=== PATIENT | male | born 1955 | race Caucasian/White ===

== ENCOUNTER 2016-08-23 12:30 | Inpatient (IN) | payer SELFPAY ==
[~2016-08-23] VITALS: Ht 175.3 cm
--- NOTE | ~2016-08-23 | CON ---
PATIENT'S NAME: RUCHI BR[facility] AGE: 60 Y [address] ROOM: [place] [address] [place] [facility] [place] DATE: 08/23/2016 Consultation DISCHARGE DATE: FAMILY PHYSICIAN: Antoine Sesay MD ATTENDING PHYSICIAN: SHANIA GIMENEZ DATE OF CONSULTATION: 08/31/2016 REFERRING PHYSICIAN: FANI ESCOBAR MD LOCATION: Medical-Surgical Unit room 3216. REFERRING PROVIDER: Rianna Meier MD. CHIEF COMPLAINT: Palliative Care referral for goals of care conversation. HISTORY OF PRESENT ILLNESS: The patient is a 60-year-old male who was recently admitted to [facility] and diagnosed with hepatitis C cirrhosis and hepatocellular carcinoma. He does have a past medical history significant for heavy alcohol and tobacco use. While at the [facility], he did undergo a paracentesis. After discharged home, he noticed increasing abdominal distention and had increasing shortness of breath secondary to this. Thus, he presented to the ER in [place] and was transferred to [facility] for higher level of care. The patient at that time had also been noted to have some black stools over the last couple of days. PREVIOUS OPERATIONS: 1. Appendectomy. 2. Previous paracentesis. PAST MEDICAL HISTORY: 1. Hepatocellular carcinoma. 2. Hepatitis C. 3. Liver cirrhosis. 4. History of tobacco and alcohol use. 5. Ascites, status post paracentesis. MEDICATIONS: Please see current MAR. ALLERGIES: NO KNOWN ALLERGIES. PATIENT'S NAME: RUCHI BROOKE [facility] AGE: 60 Y [address] ROOM: [place] [address] [place] [facility] [place] DATE: 08/23/2016 Consultation DISCHARGE DATE: FAMILY PHYSICIAN: Antoine Sesay MD ATTENDING PHYSICIAN: SHANIA GIMENEZ SOCIAL HISTORY: The patient has a history of drinking 3-4 beers as well as hard liquor daily for the past 15-20 years, he quit approximately 6 weeks ago. He also has a history of smoking a pack a day for the last 20 years. He also quit approximately 6 weeks ago. The patient is not . He lives alone in [place]. His mother does live with him from time to time. FAMILY HISTORY: The patient's sister of breast cancer 5 years ago, his mother has heart disease, and his father of natural causes. REVIEW OF SYSTEMS: GENERAL: Appetite has been down. Positive for a weight loss. Denies any recent fever, chills, or night sweats. HEENT: No change in vision or hearing. No headaches. No sinus congestion. No changes in hearing. RESPIRATORY: No cough. Reports that his shortness of breath has improved since admission. Denies any shortness of breath at the current time. CARDIOVASCULAR: No chest pain, pressure, or palpitations. Denies orthopnea. No peripheral edema. GASTROINTESTINAL: Has had some intermittent nausea and vomiting, denies any at the current time. Does have issues with some diarrhea, but has been taking lactulose. Denies any black stools during hospitalization. No difficulties with chewing or swallowing. GENITOURINARY: Denies dysuria, urinary frequency or urgency. MUSCULOSKELETAL: Denies any joint swelling or joint pain. No back pain. NEUROLOGIC: No numbness or tingling. Denies dizziness. INTEGUMENTARY: No rashes or open areas. PSYCHIATRIC: Denies feeling overtly depressed or anxious. Denies insomnia. PHYSICAL EXAMINATION: VITAL SIGNS: Blood pressure 105/75, heart rate 102, temperature 98.1, respirations 16, and O2 saturations 96% on room air. GENERAL: Reveals an alert and oriented, chronically ill-appearing, thin, elderly male who is lying in the hospital bed, does not appear to be in any acute distress. HEENT: Normocephalic, atraumatic. Does have temporal wasting. Pupils are equal and reactive to light. Sclerae are slightly icteric. Tongue and mucous membranes are moist and pink. Dentition is poor. CARDIOVASCULAR: Heart tones, regular rate and rhythm. He is tachycardic. I am not able to note a murmur. RESPIRATORY: Respirations are regular and nonlabored. Lung sounds are clear to auscultation bilaterally. GASTROINTESTINAL: Abdomen is rounded and nontender. Bowel sounds are PATIENT'S NAME: ANDRIY HOPPER [facility] AGE: 60 Y [address] ROOM: [place] [address] [place]: [facility] [place] DATE: 08/23/2016 Consultation DISCHARGE DATE: FAMILY PHYSICIAN: Antoine Sesay MD ATTENDING PHYSICIAN: SHANIA GIMENEZ present. MUSCULOSKELETAL: No significant joint deformities. Peripheral pulses are strong and equal bilaterally. No clubbing, cyanosis, or edema. SKIN: Warm and dry. NEUROLOGICAL: Grossly intact. PSYCHIATRIC: Displays appropriate mood and affect given the situation. IMPRESSION AND PLAN: 1. Poor appetite. 2. Fatigue. 3. Weakness. 4. Code status: This was discussed with the patient, and he tells me that he does not want CPR or mechanical ventilation that would prolong his life. He does not have an advance directive or living will, but does tell me that his nuaxyme-ds-wio, Vishal, would be is healthcare power of state's attorney should we need anything. The patient also tells me that he is trying to work on power of state's attorney and his will. I did offer to assist him in completing healthcare power of state's attorney paperwork, but he declines at this time. I met with the patient, introduced the role of palliative Care for goals of care conversation as well as symptom management. I did undergo a long discussion with the patient on his goals. He tells me at this point he just wants to go home and have 1 more month to get his affairs in order. He states he is ready to when that time comes and that he wants to in his own home. Discussed with him he does not fully know his prognosis or how much time he has, but he tells me over and over again that all he wants is 1 more month. Discussed how we can make these goals happen. The patient states that his mother can move in with him and take care of him. I also discussed the role of hospice versus home health care at the home to assist with meeting these needs as well. I did also place a phone call to the patient's mother and confirmed this discussion with her. She states the patient had called her earlier today and told her that he just wanted to come home and be made comfortable and she is in agreement with this plan and tells me that she does feel as though she will be able to help take care of him. They do also have multiple friends in the area that would also be able to assist with his cares. I then placed a phone call to the patient's brother-in- law, Vishal, he is agreeable to being Andriy's power of state's attorney and he also agrees with the plan of going home plus or minus hospice or home health and states he will assist with this making this plan happen. I did update Shirlene Abernathy APRN as well as SU Butler, with the results of my conversation with the patient. As the patient does seem to have changed his mind multiple times over the course of the day, we will follow up in the next coming days to reassess goals of care. The patient denies any spiritual needs, denies any worries or concerns at this time. PATIENT'S NAME: ANDRIY HOPPER [facility] AGE: 60 Y [address] ROOM: [place] [address] [place]: [facility] [place] DATE: 08/23/2016 Consultation DISCHARGE DATE: FAMILY PHYSICIAN: Antoine Sesay MD ATTENDING PHYSICIAN: SHANIA GIMENEZ Total visit was 65 minutes, greater than 50% of this time was spent providing education to the patient, coordinating care with the patient's family and staff. Thank you for allowing me to assist this patient and family. OSBALDO LEPE NP FOR KAMINI TIPTON MD DLS/modl /[id number] CC: Rianna Meier MD d: 09/02/[id number] t: 09/09/16 0821, CONSULTATION REPORT
--- NOTE | ~2016-08-23 | CON ---
PATIENT'S NAME: RUCHI [facility] AGE: 60 Y [address] ROOM: [place] [id number] [place] [facility] [place]: 08/23/2016 Consultation DISCHARGE DATE: FAMILY PHYSICIAN: PHYSICIAN, UNKNOWN ATTENDING PHYSICIAN: SHANIA GIMENEZ REFERRING PHYSICIAN: FANI ESCOBAR MD IDENTIFICATION: This is a 60-year-old male. REASON FOR CONSULTATION: Mr. Stark was admitted with abdominal pain, abdominal distention, liver cirrhosis, and history of HCC. HISTORY OF PRESENT ILLNESS: He lives in [place] and was admitted with abdominal pain, distention, and ascites. He is known to have liver cirrhosis with last 1 month that he knows of when his abdomen started getting distended and he was worked up in [place]. He was told that he has liver cirrhosis with HCC and that he was not a candidate for liver transplant. He has been a heavy drinker for the last 30 years, approximately 3 cans of beer and hard liquor every day, which he quit drinking for the last 1 month. He has been a heavy smoker, 1 pack per day for the last 30 years. He also quit smoking 1 month ago. He is unmarried. His mother lives with him sometime. PAST SURGICAL HISTORY: He had appendectomy at age 10. MEDICAL HISTORY: Liver cirrhosis with HCC, abdominal pain as a result. ALLERGIES: NO KNOWN DRUG ALLERGIES. MEDICATIONS: He is takin. Lasix. 2. Spironolactone. REVIEW OF SYSTEMS: A 10-point review of system was negative other than mentioned above. PHYSICAL EXAMINATION: GENERAL: Reveals a middle aged man, who is not in acute discomfort; however, he has distended abdomen, and he also gives me a history of having dark- colored stools, and his Hemoccult blood was positive in [place]. PATIENT'S NAME: RUCHI [facility] AGE: 60 Y [address] ROOM: [place] [address] [place] [facility]: 08/23/2016 Consultation DISCHARGE DATE: FAMILY PHYSICIAN: PHYSICIAN, UNKNOWN ATTENDING PHYSICIAN: SHANIA GIMENEZ VITAL SIGNS: His blood pressure is 142/88, pulse is 83 per minute, weight is 62.2 kg, and temperature is 97.7 degrees Fahrenheit. EYES: Mildly icteric. It is difficult to evaluate in room light. HEAD: Normocephalic, atraumatic. NECK: Supple. No lymphadenopathy. Neck veins are not engorged. CHEST: Clear to palpation, percussion, and auscultation. ABDOMEN: Markedly distended and has ascites. Liver and spleen cannot be percussed because of ascites. He has marked wasting with intercostal muscle loss and supraclavicular muscle loss, also from ascites. EXTREMITIES: Show hands to have palmar erythema. Clubbing is positive. NEUROLOGICAL: Cranial nerves II through XII intact. He has no asterixis. Motor and sensory system are intact. LABORATORY DATA: Shows hemoglobin is 12.2, hematocrit is 34.4, WBC count is 9.8. Serum electrolytes showed sodium is 128, potassium is 4.3, chloride 93, bicarb is 27, glucose is 137, BUN is 25, creatinine 1. Albumin is 2.3, bilirubin is 2.2, ALT is 107, AST is 291, alkaline phosphatase is 282. PT is 17, INR is 1.7, APTT is 36. His stools were positive for occult blood in [place]. He is known to have hepatitis C positive. ASSESSMENT: Ms. Stark has alcoholic cirrhosis, now has hepatitis C positive, both maybe incriminated for his cirrhosis. He is known to have hepatitis C plus hepatocellular carcinoma, which he was told in [place], and he was also told that he is not a candidate for liver transplant. He has marked ascites with abdominal pain, which is mitigating factor for the patient. RECOMMENDATIONS: 1. Because of his heme-positive stools and melena history, he is evaluated for esophageal varices by EGD and possible band ligation. 2. His ascites should be tapped to rule out SBP and also therapeutic tap for 2 L and to cover up for albumin. 3. In view of his known history of HCC and refusal from liver transplant, he may be given supportive care with diuresis. Keep a watch on his potassium and renal functions on a salt-restricted diet. We appreciate sharing care of this patient. MD CANDIDA GAONA/mike PATIENT'S NAME: ANDRIY STARK [facility] AGE: 60 Y [address] ROOM: [address] [address] [place] [facility] [place]: 08/23/2016 Consultation DISCHARGE DATE: FAMILY PHYSICIAN: PHYSICIAN, UNKNOWN ATTENDING PHYSICIAN: SHANIA GIMENEZ /[id number] d: 08/24/16 0325 t: 08/28/16 1140, CONSULTATION REPORT
--- NOTE | ~2016-08-23 | HP ---
PATIENT'S NAME: RUCHI [facility] AGE: 60 Y [address] ROOM: [place] [address] [place] [facility] [place]: 08/23/2016 History & Physical DISCHARGE DATE: FAMILY PHYSICIAN: PHYSICIAN, UNKNOWN ATTENDING PHYSICIAN: SHANIA GIMENEZ DATE OF SERVICE: PRIMARY CARE PHYSICIAN: None. CHIEF COMPLAINT: Abdominal distention. HISTORY OF PRESENT ILLNESS: This 60-year-old male with recent diagnosis of hepatitis C and cirrhosis. The patient also has a history of hepatocellular carcinoma, recently diagnosed. He gives a strong alcohol history and was diagnosed with alcoholic cirrhosis as well. The patient was admitted to [facility] recently and underwent evaluation last month when he was diagnosed with alcoholic cirrhosis. The patient also stated that he had abdominal distention at that point of time with no pain and no fever. He had paracentesis but now reports of increasing abdominal distention. He also complains of increasing shortness of breath secondary to abdominal distention. Denies any fever. The patient presented to the ER in [place] where he was evaluated, and it was thought that the patient needed a paracentesis. The patient was then transferred to [facility] for higher level of care. He has also noticed some black stools in the past few days. Apparently, he has not undergone screening EGD or colonoscopy yet. Denies any pain issues at this point of time. Denies any head trauma or loss of consciousness. No other complaints at this point in time. REVIEW OF SYSTEMS: A 10-point review of systems was done and was otherwise negative except as mentioned above. HOME MEDICATIONS: Per MAR. FAMILY HISTORY: Mother with heart disease. Father and did not have any medical problems. Sister from breast cancer. PAST SURGICAL HISTORY: Appendectomy. PATIENT'S NAME: RUCHI [facility] AGE: 60 Y [address] ROOM: [place] [address] [place] [facility]: 08/23/2016 History & Physical DISCHARGE DATE: FAMILY PHYSICIAN: PHYSICIAN, UNKNOWN ATTENDING PHYSICIAN: SHANIA GIMENEZ PAST MEDICAL HISTORY: 1. Recent history of hepatitis C. 2. Liver cirrhosis. 3. Alcoholic liver disease. 4. Tobaccoism. 5. History of hepatocellular carcinoma. SOCIAL HISTORY: Quit alcohol 1-1/2 months ago. He used to drink 3 to 4 beers daily for the past 15 to 20 years. One pack per day smoking for 15 to 20 years, quit 1-1/2 months ago. PHYSICAL EXAMINATION: VITAL SIGNS: Temperature 97.7, pulse 94, respirations 16, blood pressure 129/89, saturation 95% on room air. GENERAL: The patient is alert and oriented x3. Answers all questions appropriately. No acute distress. HEENT: Head: Normocephalic, atraumatic. Pupils are equal, round, reactive to light. Extraocular muscles are intact. Scleral icterus noted. No conjunctival injection noted. Nares clear. Throat clear. Mucous membranes moist. NECK: Supple. No nuchal rigidity. HEART: Regular rate and rhythm. LUNGS: Clear to auscultation bilaterally. ABDOMEN: Soft, nontender. The patient has extensive abdominal distention. No tenderness to palpation. No guarding or rigidity noted. Bowel sounds are present. EXTREMITIES: No clubbing, cyanosis, or edema. VASCULAR: Pulses 2+ distally bilaterally. NEUROLOGIC: The patient is alert and oriented x3. Follows all commands. Moves all extremities. Cranial nerves 2 through 12 are grossly intact. DIAGNOSTIC STUDIES: Studies were reviewed from the referral hospital. PT 17.6, INR 1.7, PTT 36.1. CMP showed sodium 128, potassium 4.3, chloride 93, bicarb 27.0, glucose 137, BUN 25, creatinine 1.0. Calcium 9.1, total protein 8.1, albumin 2.3, total bilirubin 2.2, alkaline phosphatase 262, ALT 107, AST 291. CBC showed a white count of 9.8, hemoglobin 13.1, hematocrit 37.0, platelets 267. A CT of abdomen with no contrast was done, that showed marked abdominal ascites with cirrhotic changes of the liver, portal vein thrombosis likely to be felt, but could not be adequately assessed, mild colitis with some mild enteritis changes within small bowel loops noted, gallbladder likely thickened, small right pleural effusion, and tiny left pleural effusion PATIENT'S NAME: ANDRIY HOPPER [facility] AGE: 60 Y [address] ROOM: [place] [address] [place] [facility] [facility] [place]: 08/23/2016 History & Physical DISCHARGE DATE: FAMILY PHYSICIAN: PHYSICIAN, UNKNOWN ATTENDING PHYSICIAN: SHANIA GIMENEZ identified. ASSESSMENT AND PLAN: 1. History of hepatitis C. 2. History of liver cirrhosis. The patient has acute decompensated liver cirrhosis. I will diurese with Lasix. The patient will also receive Aldactone. 3. Massive ascites. The patient will need paracentesis. His INR is 1.7, so paracentesis could not be accomplished today. We will repeat INR in the morning and then have Radiology do a paracentesis. 4. History of alcoholic cirrhosis. 5. Tobaccoism. 6. History of hepatocellular carcinoma, recently diagnosed. 7. Deep vein thrombosis prophylaxis. SCD to legs. 8. Code status. Full code. Discussed with the patient at the time of admission. 9. History of melena. The patient will be placed on Protonix, and GI consult will be obtained for the patient. He may need a screening EGD or colonoscopy. Frequent H and H will be monitored. We will transfuse if hemoglobin is less than or equal to 7. Currently, he denies any lightheadedness, and his hemoglobin is stable. SHANIA GIMENEZ MD MT/mike /[id number] D: 137 T: [id number] HISTORY & PHYSICAL
--- NOTE | ~2016-08-23 | DS ---
PATIENT'S NAME: ANDRIY HOPPER [facility] AGE: 60 Y [address] ROOM: [address] [place] [address] [place] [facility] [place]: [place]23[place] Discharge Summary DISCHARGE DATE: 09/06/2016 FAMILY PHYSICIAN: Antoine Sesay MD ATTENDING PHYSICIAN: Tiburcio Kapoor CONSULTANTS: 1. Dr. Holm. 2. Brenna Chi APRN, palliative care. DISCHARGE DIAGNOSES: 1. Acute decompensated liver cirrhosis. 2. Ascites. 3. Hepatitis C. 4. Hepatocellular cancer. 5. Melena. 6. Chronic hyponatremia. 7. Hepatic encephalopathy. 8. Esophageal varices, status post banding. 9. Bilateral pleural effusions. 10. Transaminitis status post paracentesis. 11. Moderate protein-calorie malnutrition. HOSPITAL COURSE: Please refer to admitting history and physical as dictated by Dr. Kapoor. Briefly, the patient was admitted to [facility] where he was found to have acute decompensated liver cirrhosis. GI was consulted. He was started on Lasix 40 mg IV. His home Aldactone was continued. Due to his abdominal pain and distention, he was taken for an EGD, which he underwent, which he was found to have varices, and band ligation was performed to control the bleeding. He tolerated the procedure without difficulty. He also had abdominal distention with pain. Ultrasound showed a large amount of ascites. He had a paracentesis for 3600 mL on 08/26/2016. The following day, his AST was found to be 8263, ALT 1812. These were both up significantly. It was felt as though he had live shock related to the paracentesis. He was given albumin IV. His liver function tests were trended, which after 08/27 continued to trend downward. He was noted to have some hepatic encephalopathy. He was given Rifaximin as well as lactulose. The patient had been refusing his lactulose for some time, however, then did begin to take it routinely. His abdominal distention was improved after the paracentesis. Palliative Care was consulted and did meet with the patient. The power of disability attorney was put into place as his [id number], Vishal. We will assist him as POA. The patient felt as though he wanted to go home on medications with treatment to get his affairs in order, and then will likely transition to hospice. His hepatic encephalopathy continued to improve as he was taking his lactulose routinely. Physical therapy followed him throughout PATIENT'S NAME: ANDRIY HOPPER [facility] AGE: 60 Y [address] ROOM: [place] [id number] [place] [facility] [place]: 08[place]23/2016 Discharge Summary DISCHARGE DATE: 09/06/2016 FAMILY PHYSICIAN: Antoine Sesay MD ATTENDING PHYSICIAN: Tiburcio Kapoor his stay. He did have a one time straight cath and was placed on Flomax daily as he has had urinary retention. His diuretics were continued. His chronic hyponatremia was stable. Due to the patient's goals of wanting to go home and get his affairs in order, he will continue his lactulose, and we will hold his Rifaximin. The patient's vital signs were stable. He was afebrile. On 09/06/2016, it was felt as though he was stable to be discharged to home with his [id number], Vishal, and his mother with the goal to eventually transition to hospice as an outpatient. LABORATORY DATA: Sodium remained chronically low 127 to 130; potassium ranged 3.9 to 4.8; BUN 25 upon admit, it did go as high as 35, prior to discharge 20; creatinine 1.0 upon admit, prior to discharge 0.8. Albumin 2.1 to 2.8; total bilirubin 1.9 upon admit, it did go up as high as 2.5 and subsequently back down to 1.6 prior to discharge; alkaline phosphatase 235 to 483; AST 244 upon admit, it went as high as greater than 10,000 and subsequently trended back down, prior to discharge 143; ALT admitted at 993, went up as high as 2442, at which time, it then began to trend down, prior to discharge 155. GFR remained greater than 60. Mag 1.9. Ammonia 53, which trended down to 39. WBCs 9.5 upon admit, on the day of discharge 15.1, he was afebrile; hemoglobin remained within normal limits; hematocrit 32.3 to 37.8; platelets within normal limits at discharge 301. INR 1.5 to 1.6. UA: leukocytes 25, ketones 5, bilirubin positive, wbc 2 to 5, bacteria negative, mucus 1+. Paracentesis, culture no growth at 3 days. RADIOLOGY REPORTS: Chest x-ray upon admit showed small bilateral pleural fluid collections. Heart size and pulmonary vascularity within normal limits. Ultrasound done on 09/02/2016 showed small volume of free fluid in the abdomen, small bilateral pleural fluid, layering of sludge material in the dependent portion of the gallbladder, no intrahepatic or extrahepatic biliary dilation. DISCHARGE INSTRUCTIONS: The patient will be discharged to home with his mom and [id number]. Diet, as tolerated. Activity, as tolerated, no driving. Followup appointment with Dr. Sesay in 1 week. Hospice to follow up with the patient as an outpatient. PROCEDURES PERFORMED: KAREN Carlson on 08/24/2016 and 08/26/2016; paracentesis on 08/24/2016. DISCHARGE MEDICATIONS: 1. Lasix 60 mg p.o. daily. 2. Spironolactone 150 mg p.o. daily. 3. Protonix 40 mg p.o. daily. 4. Flomax 0.4 mg p.o. q.h.s. 5. Lactulose 45 mL p.o. q.i.d. 6. Dilaudid 1 mg p.o. every 4 hours as needed for pain. PATIENT'S NAME: [facility] AGE: 60 Y [address] ROOM: [place] [address] [place] [facility] [place]: 08/23/2016 Discharge Summary DISCHARGE DATE: 09/06/2016 FAMILY PHYSICIAN: Antoine Sesay MD ATTENDING PHYSICIAN: Tiburcio Kapoor Thank you for allowing us to participate in the care of this patient as he has been hospitalized at [facility]. YANY CLARK APRN FOR MD EVARISTO CARLOS/mike /[id number] CC: Antoine Sesay MD d: 09/07/16 0327 t: 09/12/16 1352, DISCHARGE SUMMARY
--- NOTE | ~2016-08-23 | CON ---
PATIENT'S NAME: RUCHI [facility] AGE: 60 Y [address] ROOM: [place] [address] [place] [facility] [place]: 08/23/2016 Consultation DISCHARGE DATE: FAMILY PHYSICIAN: Antoine Sesay MD ATTENDING PHYSICIAN: SHANIA GIMENEZ REFERRING PHYSICIAN: FANI ESCOBAR MD HISTORY OF PRESENT ILLNESS: Mr. Stark has been seen by me earlier for evaluation of possible esophageal varices on endoscopy. He had varices that did not need band ligation. Significant change in the liver tests have been noted since yesterday. His AST jumped up to 8263 from 326 the day before, and ALT 1812 from 113 day before, alkaline phosphatase 300 from 227 from day before. His bilirubin has stayed the same. He had 3 L of paracentesis prior to liver function tests. Symptomatically, he is feeling somewhat nauseous and had vomited his juice, otherwise no abdominal pain. There is no tenderness. Review of record did not show any significant drop in the blood pressure, however, the records immediately before and after paracentesis have not been clear. ASSESSMENT: 1. I believe that he had his liver function abnormalities secondary to paracentesis, probably a hypotensive episode of shift of fluid with relative hypotension and ischemic injury to the liver. 2. He was on Tylenol and tramadol, which have been stopped today, may have been a reason for transaminitis. RECOMMENDATIONS: 1. Give him albumin 100 mL 25% one time. 2. Repeat liver function test tomorrow for reevaluation and avoid any pain medications, particularly Tylenol or tramadol. We will follow up of the liver function tests tomorrow. Appreciate sharing care of this patient. MD CANDIDA GAOAN/mike /[id number] [facility]: [facility] 60 Y [address] ROOM: [place] [address] [place] [facility] [place]: 08/23/2016 Consultation DISCHARGE DATE: FAMILY PHYSICIAN: Antoine Sesay MD ATTENDING PHYSICIAN: SHANIA GIMENEZ CC: Antoine Sesay MD d: t: 08/30/16 0850, CONSULTATION REPORT
[2016-08-23] MEDS ORDERED: LASIX40 MG PO (15:22)
[2016-08-23] MEDS ORDERED: ALDACTONE100 MG PO (15:22)
--- NOTE | 2016-08-23 15:47 | NUR ---
60 Y/O MALE ADMITTED FOR LIVER CIRRHOSIS AND A GI BLEED. PT HAS NOT BEEN FEELING WELL FOR ATLEAST THE PAST 6 WEEKS. W[facility] TO [facility] BEGINNING [facility] JULY WHERE HE WAS TOLD THAT HE HAD LIVER CANCER AND HEPATITIS C. PT HAS LOST 30-40 LBS OVER THIS TIME. PT ABD DISTENDED, STATES HE HAS LOOSE TO DIARRHEA STOOLS THAT ARE BLACK. C/O SOB, FEELING WEAK, OCC DIZZINESS, TIRES EASILY AND POOR APPETITE. DRY HEAVES OFF & ON. JUST NOT FEELING WELL HISTORY - APPY YRS AGO, NKMA, ABD DISTENDED AND WAS TAPPED AT [facility] IN JUL., HPE C, LIVER CIRRHOSIS, LIVER CANCER, SMOKER SMOKER X35 YRS 1PPD, & DRINKER. QUIT ABOUT 4-6 WKS AGO. REPORT GIVEN TO PT PRIMARY CARE NURSE MARICARMEN BLUE
[2016-08-23 16:48] LABS: HEMATOCRIT 34.8 % (37.0-53.0); HEMOGLOBIN 12.2 g/dL (11.0-16.0)
--- NOTE | 2016-08-23 17:36 | NUR ---
Significant Event: Patient is alert and oriented x3. VSS- pulse runs in the high 90's- regular. On RA. IV started in the L)wrist, SL. Chest x-ray to be done. GI consult. Abdomen is very distended and denies pain. Denies nausea. Cardiac diet. Gave IV lasix and IV protonix. Very pleasant patient. Cooperative with cares.
[2016-08-23 22:23] LABS: HEMATOCRIT 34.9 % (37.0-53.0)
--- NOTE | 2016-08-24 03:22 | NUR ---
Significant Event: Pt is alert and oriented. VSS on RA. IV to the L)wrist SL. Pt's abdomen is very distended and hard. No complaints of nausea. Tylenol given x1. Ambulates SBA/gaitbelt. NPO for EGD today. Consents signed and checklist started in chart. Follow Up: Continue to monitor.
[2016-08-24 05:10] LABS: BASOPHIL % 0.2 %; EOSINOPHIL # 0.1 K/uL (0.0-0.5); EOSINOPHIL % 0.8 %; HEMATOCRIT 36.7 % (37.0-53.0); HEMOGLOBIN 12.7 g/dL (11.0-16.0); IMMATURE GRANULOCYTE # 0.1 K/uL (0.0-0.3); IMMATURE GRANULOCYTE % 0.6 %; LYMPHOCYTE # 2.2 K/uL (0.8-4.0); LYMPHOCYTE % 22.8 %; MCH 32.9 pg (27.0-34.0); MCHC 34.6 gm/dL (32.0-36.5); MCV 95.1 fl (83.0-98.0); MONOCYTE % 10.4 %; MPV 10.5 fl (9.4-12.4); NEUTROPHIL # (ANC) 6.2 K/uL (1.4-9.0); NEUTROPHIL % 65.2 %; NRBC % 0 /100WBC (0-0.00); PLATELET COUNT 237 K/uL (150-450); RBC 3.86 M/uL (3.50-5.50); RDW-CV 16.3 % (11.9-14.6); WBC 9.5 K/uL (4.0-11.0)
[2016-08-24 05:18] LABS: INR - (THERAPEUTIC) 1.5 (0.9-1.1); PROTIME 16.1 SECONDS (9.6-11.1); PTT 29 SECONDS (25-32)
[2016-08-24 05:32] LABS: ALBUMIN 2.1 gm/dL (3.5-5.0); ALK PHOS 235 IU/L (33-138); ALT 93 IU/L (12-78); BLOOD UREA NITROGEN 25 mg/dL (6-24); CALCIUM 8.6 mg/dL (8.5-10.5); CHLORIDE 93 mMol/L (96-110); CO2 28 mMol/L (22-32); ESTIMATED GFR (MDRD EQUATION) > 60; SODIUM 129 mMol/L (135-145); TOTAL BILIRUBIN 1.9 mg/dL (0.0-1.5); TOTAL PROTEIN 7.6 g/dL (6.0-8.4)
[2016-08-24 05:34] LABS: ANION GAP 12.4 (10.0-19.0); AST 244 IU/L (10-40); POTASSIUM 4.4 mMol/L (3.7-5.1)
--- NOTE | 2016-08-24 14:41 | NUR ---
Met with patient at bedside today. Introduced myself and the role of the CM department. Patient lives alone in [place]. He does not have insurance but tells me that his brother is an insurance defense attorney and he is helping him try to get on a plan. He states his mother lives about 10 blocks from him and she comes over to check on him frequently. He also states that he has a lot of friends that come and check on him regularly. he states that he is hoping to live long enough to get his will established and in place. He has the [employer] application and I encouraged him to fill that out and get that sent back in to the hospital. He is concerned with how weak he is and being able to get stronger at home. I discussed home health care and he is interested in this, but we will have difficulty finding an agency willing to accept him since he is self pay. I will place a face to face sheet on the chart just in case the doctor agrees that home health care is a good option. Will continue to follow and offer supports as needed.
--- NOTE | 2016-08-24 17:21 | NUR ---
AAOx3. Cooperative with cares. Up w/SBA, GB. IV to RFA s/l'd. Had EGD this a.m. w/3 varices banded. Had Paracentesis this afternoon w/2liters taken off. 100cc 25% Albumin transfused afterward. Tolerating cardiac diet well. VSS, afebrile, on RA. Encourage Ensures with meals; likes chocolate. Dressing to L)abdomen c/d/i. May change if saturated. If c/d may removed 24hrs post tap.
--- NOTE | 2016-08-25 04:28 | NUR ---
Significant Event: Pt is alert and oriented. VSS on RA. Ambulates standby assist. IV to the R)wrist SL. Dressing to L)abdomen clean/dry/intact. Change if saturated, can remove if clean 24 hours after tap. Daily weight. Tolerating a cardiac low salt diet. Morphine given x1 around 0230. Pt had bowel movement, asked to leave it next time so nurse could observe. Follow Up: Monitor pain.
[2016-08-25 05:24] LABS: BASOPHIL % 0.2 %; EOSINOPHIL % 0.1 %; HEMOGLOBIN 11.9 g/dL (11.0-16.0); IMMATURE GRANULOCYTE % 0.5 %; LYMPHOCYTE # 1.4 K/uL (0.8-4.0); LYMPHOCYTE % 16.8 %; MCH 33.1 pg (27.0-34.0); MCV 94.7 fl (83.0-98.0); MONOCYTE # 0.7 K/uL (0.0-1.0); MONOCYTE % 8.9 %; MPV 10.4 fl (9.4-12.4); NEUTROPHIL # (ANC) 6.1 K/uL (1.4-9.0); NEUTROPHIL % 73.5 %; NRBC % 0 /100WBC (0-0.00); PLATELET COUNT 232 K/uL (150-450); RBC 3.59 M/uL (3.50-5.50); RDW-CV 16.3 % (11.9-14.6); WBC 8.3 K/uL (4.0-11.0)
[2016-08-25 05:40] LABS: ALBUMIN 2.4 gm/dL (3.5-5.0); ALK PHOS 236 IU/L (33-138); ALT 127 IU/L (12-78); ANION GAP 10.9 (10.0-19.0); AST 424 IU/L (10-40); BLOOD UREA NITROGEN 25 mg/dL (6-24); CALCIUM 8.5 mg/dL (8.5-10.5); CHLORIDE 95 mMol/L (96-110); CO2 29 mMol/L (22-32); CREATININE 0.7 mg/dL (0.6-1.3); ESTIMATED GFR (MDRD EQUATION) > 60; MAGNESIUM 2.1 mg/dL (1.3-2.6); POTASSIUM 3.9 mMol/L (3.7-5.1); SODIUM 131 mMol/L (135-145); TOTAL BILIRUBIN 2.1 mg/dL (0.0-1.5); TOTAL PROTEIN 7.4 g/dL (6.0-8.4)
--- NOTE | 2016-08-25 16:07 | NUR ---
Significant Event: PT ALERT AND ORIENTED. VS Q4 HR. IV TO R WRIST, SALINE LOCK. AMBULATES WITH 1PA, GAITBELT AND CANE. TOLERATING SMALL AMOUNT OF LOW SODIUM DIET. REPORTED BM X2. THERPAY WORKING WITH. ABDOMEN IS FIRM AND SLIGHTLY DISTENDED. DRESSING FROM L ABDOMEN PARACENTESIS SITE REMOVED. Follow up: CONTINUE TO MONITOR
--- NOTE | 2016-08-26 04:28 | NUR ---
Significant Event:PATIEN TIS ALERT AND OREINTED. VSS. VS EVERY 4 HOURS. 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 DRESSING TO LEFT ABD REMOVED. CALLED ON TWO OCCASIONS REGARDING INCREASED ABDOMINAL PAIN/DISCOMFORT. MORPHINE ORDERED X1 EACH TIME. LAST DOSE AT 0230. PATIENT SLEPT WELL FOLLOWING THIS DOSE. PATIENT COMPLAINS OF SEVERE ABDOMINAL DISTENSION. HE WILL NEED CONTINUED EDUCATION REGARDING DISEASE PROCESS. Follow up:
[2016-08-26 05:39] LABS: BASOPHIL % 0.1 %; EOSINOPHIL % 0.1 %; HEMATOCRIT 35.3 % (37.0-53.0); HEMOGLOBIN 12.5 g/dL (11.0-16.0); IMMATURE GRANULOCYTE # 0.1 K/uL (0.0-0.3); IMMATURE GRANULOCYTE % 0.5 %; LYMPHOCYTE # 1.6 K/uL (0.8-4.0); LYMPHOCYTE % 15.8 %; MCH 33.7 pg (27.0-34.0); MCHC 35.4 gm/dL (32.0-36.5); MCV 95.1 fl (83.0-98.0); MONOCYTE # 0.9 K/uL (0.0-1.0); MPV 10.5 fl (9.4-12.4); NEUTROPHIL # (ANC) 7.3 K/uL (1.4-9.0); NEUTROPHIL % 74.5 %; NRBC % 0 /100WBC (0-0.00); PLATELET COUNT 252 K/uL (150-450); RBC 3.71 M/uL (3.50-5.50); RDW-CV 16.5 % (11.9-14.6); WBC 9.8 K/uL (4.0-11.0)
[2016-08-26 06:01] LABS: ALBUMIN 2.2 gm/dL (3.5-5.0); ALK PHOS 227 IU/L (33-138); ALT 113 IU/L (12-78); ANION GAP 14.2 (10.0-19.0); AST 326 IU/L (10-40); BLOOD UREA NITROGEN 22 mg/dL (6-24); CALCIUM 8.3 mg/dL (8.5-10.5); CHLORIDE 94 mMol/L (96-110); CO2 25 mMol/L (22-32); CREATININE 0.7 mg/dL (0.6-1.3); ESTIMATED GFR (MDRD EQUATION) > 60; POTASSIUM 4.2 mMol/L (3.7-5.1); SODIUM 129 mMol/L (135-145); TOTAL PROTEIN 7.4 g/dL (6.0-8.4)
--- NOTE | 2016-08-26 11:47 | NUR ---
Met with patient today to discuss whether or not he has applied for Medicaid or disability. Patient states he has completed paperwork with social security in [place] and is trying to get SSI. He states he has an interview with Social Security in [place] on Tuesday so he is hoping he will make that appointment. I also contacted Esperanza with [employer] and asked her to come up with and meet with patient to assure that he is in the process of applying for medicaid and SSI. Esperanza states she will try to come up to the room this afternoon to talk with patient. I shared with SOBIA Ellis that patient has started the SSI process and has an appointment in [place] on TuesdayAugust 30. Will continue to follow and offer supports.
[2016-08-26 13:23] LABS: INR - (THERAPEUTIC) 1.5 (0.9-1.1); PROTIME 16.4 SECONDS (9.6-11.1)
--- NOTE | 2016-08-26 14:28 | NUR ---
Significant Event: PT ALERT AND ORIENTED. VS Q 4HR. SHOWERED WITH OT THIS AM. AMBULATED IN HALLS WITH SBA, CANE AND GAITBELT. HAS REFUSED MEALS, ONLY TAKING IN SMALL AMOUNT PO ENSURE. ABDOMEN IS STILL DISTENDED, SOMEWHAT FIRM. ORDERS FOR EXTRA PAIN MEDS RECIEVED TODAY. GAVE ULTRAM X1 AT 1400. ALSO HAS SCHEDULED TYLENOL. SCHEDULED LACTULOSE. IV SALINE LOCKED TO R WRIST. PT HAS AN INTERVIEW WITH SOCIAL SECURITY OFFICE IN [place] ON TUESDAY, SO TRYING TO DISMISS PRIOR. Follow up: CONTINUE TO MONITOR,
[2016-08-26 16:17] LABS: PERITONEAL FLUID TURBIDITY CLEAR (CLEAR)
[2016-08-26 17:09] LABS: % PERITONEAL FLUID MESO 8 % (0-0); % PERITONEAL FLUID MONO/MACRO 33 % (0-0); % PERITONEAL FLUID NEUT 9 % (0-25)
--- NOTE | 2016-08-27 04:01 | NUR ---
Significant Event:pt is a/o x3. iv to r wrist is sl. pt is up w/ sba and cane. vitals q 4 hrs . pt having lots of pain, ultram 1 tab given @ 2025 and 2114 with no effect. dilaudid 2mg po given @ 2114 with some relief noted. pt rested well through most of the night. paracentesis site to LLQ dressing can be removed today @ 1530. pt drinking ensures but needs encouragement to eat more. Follow up:pain management
[2016-08-27 05:25] LABS: BASOPHIL % 0.1 %; EOSINOPHIL % 0.2 %; HEMATOCRIT 37.8 % (37.0-53.0); HEMOGLOBIN 13.2 g/dL (11.0-16.0); IMMATURE GRANULOCYTE % 0.4 %; LYMPHOCYTE # 1.8 K/uL (0.8-4.0); LYMPHOCYTE % 19.8 %; MCH 33.6 pg (27.0-34.0); MCHC 34.9 gm/dL (32.0-36.5); MCV 96.2 fl (83.0-98.0); MONOCYTE # 0.8 K/uL (0.0-1.0); MONOCYTE % 8.3 %; MPV 10.7 fl (9.4-12.4); NEUTROPHIL # (ANC) 6.5 K/uL (1.4-9.0); NEUTROPHIL % 71.2 %; NRBC % 0 /100WBC (0-0.00); PLATELET COUNT 275 K/uL (150-450); RBC 3.93 M/uL (3.50-5.50); RDW-CV 16.8 % (11.9-14.6); WBC 9.2 K/uL (4.0-11.0)
[2016-08-27 05:43] LABS: ALBUMIN 2.3 gm/dL (3.5-5.0); ALK PHOS 300 IU/L (33-138); BLOOD UREA NITROGEN 26 mg/dL (6-24); CALCIUM 8.5 mg/dL (8.5-10.5); CHLORIDE 94 mMol/L (96-110); CO2 25 mMol/L (22-32); CREATININE 0.9 mg/dL (0.6-1.3); ESTIMATED GFR (MDRD EQUATION) > 60; SODIUM 128 mMol/L (135-145); TOTAL PROTEIN 7.8 g/dL (6.0-8.4)
[2016-08-27 05:51] LABS: ANION GAP 13.7 (10.0-19.0); MAGNESIUM 2.2 mg/dL (1.3-2.6)
[2016-08-27 05:52] LABS: ALT 1812 IU/L (12-78); AST 8263 IU/L (10-40); POTASSIUM 4.7 mMol/L (3.7-5.1)
--- NOTE | 2016-08-27 11:53 | NUR ---
I have examined the student charting and find it acceptable. Karthik BLUE
--- NOTE | 2016-08-27 14:11 | NUR ---
A-NUTRITION F/U 08/26-US GUIDED PARACENTESIS; 3600 ML TAKEN OFF. C/O PAIN. TAKING ENSURE, BUT NEEDS ENCOURAGEMENT TO EAT, PER RN. (+)BM LABS: NA 128, K+ 4.7, GLU 123, BUN 26, ORACLE SOA ARCHITECT 0.9, ALB 2.3 MEDS: ULTRAM, DILAUDID, ENULOSE, ALDACTONE, LASIX DIET RX: 2-3 GM NA DIET W/ENSURE ENLIVE TID W/MEALS. PO INTAKE POOR; REFUSALS-50%. EST NUTR NEEDS: [id number] KCALS AND 60-90 GM PROTEIN D-AT NUTRITION RISK W/INADEQUATE NUTRIENT INTAKE R/T POOR APPETITE, PAIN AEB INTAKE RECORDS, RN REPORT. I-CONTINUE W/ENSURE ENLIVE TID M/E-GOAL: PO INTAKE >/=50% BY NEXT F/U 1)F/U PO INTAKE, SUPPLEMENT, AND POC IN 3-4 DAYS 2)ASSIST NEEDED
--- NOTE | 2016-08-27 14:16 | NUR ---
LATE ENTRY- Spoke to SOBIA Ellis yesterday 08/26 and since patient does not have insurance and no pay source we will not be looking at home health care at this time. We will consider this as an option if patient's medical needs change manager the weekend. It may be difficult to find a home health care agency willing to accept patient due to no pay source. Will continue to follow.
--- NOTE | 2016-08-27 15:56 | NUR ---
Significant Event:PT. A/O AND UP WITH STANDBY ASSIST. HAD SHOWER AND AMBULATED IN HALLWAY. STATES FEELS VERY TIRED AND SOME ABDOMINAL PAIN BUT REFUSES PAIN MEDS. SCHEDULED TYLENOL D/C'D. C/O SOME NAUSEA BUT REFUSES ZOFRAN. IV RIGHT WRIST. LEFT ABDOMINAL LOWER QUADRANT PARACENTESIS SITE DRESSING D/I. LIVER ENZYMES ARE ELEVATED SIGNIFICANTLY. EATING ONLY BITES OF FOOD. Follow up:
[2016-08-27 16:57] LABS: ALBUMIN 2.3 gm/dL (3.5-5.0); ALK PHOS 341 IU/L (33-138); ANION GAP 15.8 (10.0-19.0); BLOOD UREA NITROGEN 29 mg/dL (6-24); CALCIUM 8.6 mg/dL (8.5-10.5); CHLORIDE 92 mMol/L (96-110); CO2 24 mMol/L (22-32); CREATININE 1.2 mg/dL (0.6-1.3); ESTIMATED GFR (MDRD EQUATION) > 60; SODIUM 127 mMol/L (135-145); TOTAL BILIRUBIN 2.2 mg/dL (0.0-1.5); TOTAL PROTEIN 7.7 g/dL (6.0-8.4)
[2016-08-27 17:19] LABS: ALT 2442 IU/L (12-78); AST > 10000 IU/L (10-40); POTASSIUM 4.8 mMol/L (3.7-5.1)
[2016-08-27 20:14] LABS: INR - (THERAPEUTIC) 1.6 (0.9-1.1); PROTIME 17.4 SECONDS (9.6-11.1)
--- NOTE | 2016-08-28 05:34 | NUR ---
Significant Event: AAOX3. REGULAR, CARDIAC DIET. SBA WITH ACTIVITIES. PIV R) WRIST SL. DAILY WEIGHT. AM LABS: CMS, CBC, PT, LFT. DILAUDID ADMINISTERED AT 2057 FOR 5/10 PAIN SCALE. PT ABD ROUND AND FIRM. DRESSING REMOVED FROM STAB SITE. PT PLEASENTLY COOPERATIVE WITH CARES. VSS ON RA. Follow up: ABD PAIN. LABS.
[2016-08-28 05:37] LABS: BASOPHIL % 0.3 %; EOSINOPHIL % 0.4 %; HEMATOCRIT 33.9 % (37.0-53.0); HEMOGLOBIN 11.9 g/dL (11.0-16.0); IMMATURE GRANULOCYTE # 0.1 K/uL (0.0-0.3); IMMATURE GRANULOCYTE % 1.3 %; LYMPHOCYTE # 1.4 K/uL (0.8-4.0); LYMPHOCYTE % 19.4 %; MCH 33.5 pg (27.0-34.0); MCHC 35.1 gm/dL (32.0-36.5); MCV 95.5 fl (83.0-98.0); MONOCYTE % 13.9 %; MPV 10.6 fl (9.4-12.4); NEUTROPHIL # (ANC) 4.6 K/uL (1.4-9.0); NEUTROPHIL % 64.7 %; NRBC % 0 /100WBC (0-0.00); PLATELET COUNT 254 K/uL (150-450); RBC 3.55 M/uL (3.50-5.50); RDW-CV 16.8 % (11.9-14.6); WBC 7.2 K/uL (4.0-11.0)
[2016-08-28 05:44] LABS: INR - (THERAPEUTIC) 1.6 (0.9-1.1); PROTIME 17.2 SECONDS (9.6-11.1)
[2016-08-28 05:58] LABS: ALBUMIN 2.8 gm/dL (3.5-5.0); ALK PHOS 361 IU/L (33-138); ANION GAP 12.8 (10.0-19.0); BLOOD UREA NITROGEN 31 mg/dL (6-24); CALCIUM 8.6 mg/dL (8.5-10.5); CHLORIDE 93 mMol/L (96-110); CO2 26 mMol/L (22-32); ESTIMATED GFR (MDRD EQUATION) > 60; POTASSIUM 4.8 mMol/L (3.7-5.1); SODIUM 127 mMol/L (135-145); TOTAL BILIRUBIN 2.5 mg/dL (0.0-1.5); TOTAL PROTEIN 7.5 g/dL (6.0-8.4)
[2016-08-28 06:11] LABS: ALT 2038 IU/L (12-78); AST 8281 IU/L (10-40)
--- NOTE | 2016-08-28 15:42 | NUR ---
Significant Event: PT A/O. SPEECH CAN BE SLOW AT TIMES, SOMEWHAT FORGETFUL. VSS, HRs RUNNING TACHY 101-112s. VS Q 4HR. REFUSED SHOWER TODAY. AMBULATES WITH CANE AND SBA. HAS FELT MORE WEAK TODAY. PRN DILAUDID X2, LAST AT 1336, ALSO PRN ZOFRAN X1 AT 1336. REPORTS 1 MOD BM. TAKING IN SMALL AMOUNTS OF PO. ORDERS RECIEVED TO RESTRICT PROTEIN INTAKE. ALSO STARTED ON RIFAXIMIN. IV SALINE LOCKED. Follow up: CONTINUE TO MONITOR
--- NOTE | 2016-08-29 04:13 | NUR ---
Significant Event: Pt alert and oriented, can be forgetful. Pt was slightly hypotensive on RA. IV to the R)wrist SL. Zofran given at 2055. Ambulates standby assist. Cardiac diet/low sodium and orders to decrease protein intake. Vitals Q4. Speech is slow at times. Follow Up: Continue to monitor.
[2016-08-29 05:55] LABS: BASOPHIL % 0.2 %; EOSINOPHIL % 0.3 %; HEMATOCRIT 32.3 % (37.0-53.0); HEMOGLOBIN 11.5 g/dL (11.0-16.0); IMMATURE GRANULOCYTE # 0.1 K/uL (0.0-0.3); IMMATURE GRANULOCYTE % 0.7 %; LYMPHOCYTE # 1.3 K/uL (0.8-4.0); LYMPHOCYTE % 12.1 %; MCH 34.4 pg (27.0-34.0); MCHC 35.6 gm/dL (32.0-36.5); MCV 96.7 fl (83.0-98.0); MONOCYTE # 1.2 K/uL (0.0-1.0); MPV 10.5 fl (9.4-12.4); NEUTROPHIL # (ANC) 8.3 K/uL (1.4-9.0); NEUTROPHIL % 75.7 %; NRBC % 0 /100WBC (0-0.00); PLATELET COUNT 244 K/uL (150-450); RBC 3.34 M/uL (3.50-5.50); RDW-CV 17.2 % (11.9-14.6)
[2016-08-29 06:13] LABS: ALBUMIN 2.4 gm/dL (3.5-5.0); ALK PHOS 351 IU/L (33-138); ANION GAP 14.8 (10.0-19.0); BLOOD UREA NITROGEN 30 mg/dL (6-24); CALCIUM 8.7 mg/dL (8.5-10.5); CHLORIDE 91 mMol/L (96-110); CO2 27 mMol/L (22-32); ESTIMATED GFR (MDRD EQUATION) > 60; MAGNESIUM 2.3 mg/dL (1.3-2.6); POTASSIUM 4.8 mMol/L (3.7-5.1); SODIUM 128 mMol/L (135-145); TOTAL BILIRUBIN 2.3 mg/dL (0.0-1.5); TOTAL PROTEIN 7.2 g/dL (6.0-8.4)
[2016-08-29 06:27] LABS: ALT 1306 IU/L (12-78); AST 3862 IU/L (10-40)
--- NOTE | 2016-08-29 16:02 | NUR ---
Significant Event: Pt up w/ 1 assist, amb in jones, up to shower. c/o abd pain/cramping dilaudid given at 0833 abd 1243. VS Q4H. IV sl'd, tolerating diet. Confused at times. Follow up:
--- NOTE | 2016-08-30 05:05 | NUR ---
Significant Event: Pt is alert and oriented, can be somewhat confused. Ambulates with one assist/gaitbelt/cane. No complaints of pain or nausea this shift. Abdomen is distended. Vital signs Q4. IV to the R)wrist SL. Follow Up: Continue to monitor.
[2016-08-30 05:32] LABS: BASOPHIL % 0.1 %; EOSINOPHIL % 0.3 %; HEMATOCRIT 32.9 % (37.0-53.0); HEMOGLOBIN 11.5 g/dL (11.0-16.0); IMMATURE GRANULOCYTE # 0.1 K/uL (0.0-0.3); IMMATURE GRANULOCYTE % 0.9 %; LYMPHOCYTE # 1.7 K/uL (0.8-4.0); LYMPHOCYTE % 14.2 %; MCH 33.7 pg (27.0-34.0); MCV 96.5 fl (83.0-98.0); MONOCYTE # 1.4 K/uL (0.0-1.0); MONOCYTE % 11.9 %; MPV 10.4 fl (9.4-12.4); NEUTROPHIL # (ANC) 8.5 K/uL (1.4-9.0); NEUTROPHIL % 72.6 %; NRBC % 0 /100WBC (0-0.00); PLATELET COUNT 258 K/uL (150-450); RBC 3.41 M/uL (3.50-5.50); RDW-CV 17.3 % (11.9-14.6); WBC 11.7 K/uL (4.0-11.0)
[2016-08-30 05:52] LABS: ALBUMIN 2.3 gm/dL (3.5-5.0); ALK PHOS 355 IU/L (33-138); ANION GAP 10.8 (10.0-19.0); BLOOD UREA NITROGEN 34 mg/dL (6-24); CALCIUM 8.7 mg/dL (8.5-10.5); CHLORIDE 94 mMol/L (96-110); CO2 29 mMol/L (22-32); CREATININE 0.8 mg/dL (0.6-1.3); ESTIMATED GFR (MDRD EQUATION) > 60; MAGNESIUM 2.3 mg/dL (1.3-2.6); POTASSIUM 4.8 mMol/L (3.7-5.1); SODIUM 129 mMol/L (135-145); TOTAL BILIRUBIN 2.3 mg/dL (0.0-1.5); TOTAL PROTEIN 7.2 g/dL (6.0-8.4)
[2016-08-30 05:57] LABS: ALT 835 IU/L (12-78); AST 1937 IU/L (10-40)
--- NOTE | 2016-08-30 12:03 | NUR ---
Met with Shirlene Gallo to discuss patient. He did complete a phone interview with [facility] in [place] today. Dicsussed the possiblity of having a palliative consult. Shirlene will talk with Dr. Euceda and we will proceed after we have her recommendations.
--- NOTE | 2016-08-30 13:45 | NUR ---
A-NUTRITION F/U HEP C, ALCOHOLIC CIRRHOSIS, LIVER CA (+)BM. ABD DISTENDED; C/O ABD PAIN AT TIMES LABS: NA 129, K+ 4.8, GLU 106, BUN 34, HUMAN SERVICES INSTRUCTOR 0.8, ALB 2.3, LFT'S ELEVATED MEDS: ENULOSE, PROTONIX, XIFAXAN DIET RX: 2-3 GM NA/40 GM PROTEIN. PO INTAKE HAS BEEN REFUSALS-100% W/THE AVG PO INTAKE BEING 30%. PT'S PROTEIN INTAKE IS WELL BELOW 40 GMS. ENSURE ENLIVE TID; HAS BEEN REFUSING OR DRINKING MINMAL AMOUNTS. PT DOES LIKE ICE CREAM. EST NUTR NEEDS: 1150-9711 KCALS AND 40 GM PROTEIN (PER MD) D-AT NUTRITION RISK W/INADEQUATE NUTRIENT INTAKE R/T POOR APPETITE, ABD PAIN AEB CHART REVIEW, PT REPORT, AND INTAKE RECORDS. I-1)D/C ENSURE ENLIVE TID W/MEALS 2)START MAGIC CUP BID AT L/D M/E-GOAL: PO INTAKE >/=50% BY NEXT F/U 1)F/U PO INTAKE, NEW SUPPLEMENT, AND POC IN 3-5 DAYS 2)ASSIST NEEDED
--- NOTE | 2016-08-30 16:19 | NUR ---
Significant Event: PT A/O. VS Q 4HR. HRs RUNNING TACHY, AFEBRILE. AM DOSE OF ALDACTONE HELD PER BP PARAMETERS. SALINE LOCK TO R WRIST. PT REPORTS FEELING SICK TODAY, REFUSED ZOFRAN AND REFUSED PAIN MEDS, ALSO REFUSED THERAPY TODAY. ABDOMEN IS DISTENDED. ONLY TOOK IN SMALL AMOUNT OF BREAKFAST, REFUSED LUNCH. ON A LOW SODIUM, LOW PROTEIN, CARDIAC DIET. PALLIATIVE CARE CONSULT. FAMILY CALLED TO CHECK IN ON. Follow up: BED-ALARMS, CONTINUE TO MONITOR
--- NOTE | 2016-08-31 04:02 | NUR ---
Significant Event: Standby assist with transfers. Voids without difficulty. Refused Lactulose. Abdomen distended, but soft. On room air. Impulsive at times. A&O x3. Blood pressure as low as 99/59. Daily weight. Denies pain. Follow up:
[2016-08-31 05:34] LABS: BASOPHIL % 0.2 %; EOSINOPHIL % 0.2 %; HEMATOCRIT 34.9 % (37.0-53.0); HEMOGLOBIN 12.4 g/dL (11.0-16.0); IMMATURE GRANULOCYTE # 0.1 K/uL (0.0-0.3); IMMATURE GRANULOCYTE % 0.9 %; LYMPHOCYTE # 2.2 K/uL (0.8-4.0); LYMPHOCYTE % 18.1 %; MCH 33.6 pg (27.0-34.0); MCHC 35.5 gm/dL (32.0-36.5); MCV 94.6 fl (83.0-98.0); MONOCYTE # 1.4 K/uL (0.0-1.0); MONOCYTE % 11.8 %; MPV 10.4 fl (9.4-12.4); NEUTROPHIL # (ANC) 8.4 K/uL (1.4-9.0); NEUTROPHIL % 68.8 %; NRBC % 0 /100WBC (0-0.00); PLATELET COUNT 248 K/uL (150-450); RBC 3.69 M/uL (3.50-5.50); RDW-CV 17.5 % (11.9-14.6); WBC 12.2 K/uL (4.0-11.0)
[2016-08-31 05:57] LABS: ALBUMIN 2.3 gm/dL (3.5-5.0); ANION GAP 14.3 (10.0-19.0); BLOOD UREA NITROGEN 27 mg/dL (6-24); CALCIUM 8.6 mg/dL (8.5-10.5); CHLORIDE 94 mMol/L (96-110); CO2 26 mMol/L (22-32); CREATININE 0.9 mg/dL (0.6-1.3); ESTIMATED GFR (MDRD EQUATION) > 60; MAGNESIUM 2.2 mg/dL (1.3-2.6); POTASSIUM 4.3 mMol/L (3.7-5.1); SODIUM 130 mMol/L (135-145); TOTAL BILIRUBIN 2.1 mg/dL (0.0-1.5); TOTAL PROTEIN 7.6 g/dL (6.0-8.4)
[2016-08-31 05:59] LABS: ALK PHOS 439 IU/L (33-138); ALT 600 IU/L (12-78)
[2016-08-31 06:02] LABS: AST 1050 IU/L (10-40)
--- NOTE | 2016-08-31 12:14 | NUR ---
Phone call from patient's mom Zakia this morning at 1015. She was wanting to know if we were able to get Heron to complete his Will yesterday. I explained to her that Heron did not complete his Will yesterday and even if he did it would not be legally binding until it was at least notorized. I informed her that we are not able to notorize Will's here at the hospital so the family would be responsible with finding a notary to come to the hospital or they would need to wait until he was discharged. She was not happy with this answer and repeated to me that she will be left with nothing if he does not get his Will done. I met with Heron at approximately 1115 for a social visit. We discussed the fact that he is refusing his lactulose and I tried to encourage him to take this. We discussed his Will and he wants to get this done, but he states he needs to finish it at home in [place] as he wants to meet with his sed middle school teacher there. I did let him know that his mom is very concerned that his Will is not done and he states that he is aware of this. I did ask if he had a lot of assets and he implied that he does so this may be why his mom is concerned. I let him know that his brother in law Vishal has asked the Dr to call him and give him an update on patient's medical status and Heron gave verbal consent to talk to Vishal. I talked to Heron about completing the Advanced Directive here at the hospital and he wants to do that, but he wants to wait until tomorrow. I discussed with him placement options or plans for discharge, but he continues to state he plans on going home. He does agree that he is not or would not be able to care for himself at home at this point. I placed a phone call to Vishal at [phone] at 1135 and spoke to him for about 20 minutes. We discussed Zakia's concerns regarding Heron's Will and the obstacles we are facing since he does not have any insurance or Medicare. Vishal does not know where Heron is in the SSI process, but he was going to go to his home [facility] to see if he has received anything in the mail. Vishal has not done anything to try and get Heron Medicaid and he states Heron would not be in favor of Medicaid if it means that they can take or have access to some of his assets. I asked Vishal if I could forward his number on to the [employer] and have one of their staff contact him and better explain what happens to the individuals assets if they are approved for Medicaid and Vishal said yes. I let Shirlene Gallo know that Vishal would like a phone call from the MD. I will also follow up with Heron tomorrow on the Advance Directive. Will continue to follow and offer supports.
--- NOTE | 2016-08-31 16:38 | NUR ---
Significant Event: PT A/O. AM ALDACTONE HELD THIS AM FOR BP PARAMETERS. VS Q4HR. BPs RUNNING 95/59-105/75, HRs TACHY. ABDOMEN IS DISTENDED. PT HAS REFUSED LACTULOSE ALL DAY, REFUSED SHOWER, REFUSED THERAPY. PALLIATIVE IN TO SEE TODAY. PT REPORTS HE WANTS TO GO HOME. ONLY TAKING IN BITES OF DIET. SALINE LOCK TO R WRIST. AMBULATES WITH SBA, CANE. Follow up: CONTINUE TO MONITOR
--- NOTE | 2016-09-01 04:52 | NUR ---
Significant Event: Patient is alert and oriented x 3. VSS on room air. VS q4 hours. Up with stand by assist and cane. Abdomen is distended. Patient refused lactulose. Right wrist IV, saline locked. Patient is pleasant and cooperative with most cares. Follow up:
[2016-09-01 06:06] LABS: BASOPHIL # 0.1 K/uL (0.0-0.2); BASOPHIL % 0.4 %; EOSINOPHIL % 0.3 %; HEMATOCRIT 37.7 % (37.0-53.0); HEMOGLOBIN 13.2 g/dL (11.0-16.0); IMMATURE GRANULOCYTE # 0.3 K/uL (0.0-0.3); LYMPHOCYTE # 2.3 K/uL (0.8-4.0); LYMPHOCYTE % 14.9 %; MCH 33.2 pg (27.0-34.0); MONOCYTE # 1.9 K/uL (0.0-1.0); MONOCYTE % 12.5 %; MPV 10.1 fl (9.4-12.4); NEUTROPHIL # (ANC) 10.6 K/uL (1.4-9.0); NEUTROPHIL % 69.9 %; NRBC % 0 /100WBC (0-0.00); PLATELET COUNT 285 K/uL (150-450); RBC 3.97 M/uL (3.50-5.50); RDW-CV 17.6 % (11.9-14.6); WBC 15.1 K/uL (4.0-11.0)
[2016-09-01 06:24] LABS: ALBUMIN 2.4 gm/dL (3.5-5.0); ANION GAP 14.5 (10.0-19.0); BLOOD UREA NITROGEN 34 mg/dL (6-24); CALCIUM 8.5 mg/dL (8.5-10.5); CHLORIDE 93 mMol/L (96-110); CO2 25 mMol/L (22-32); CREATININE 1.2 mg/dL (0.6-1.3); ESTIMATED GFR (MDRD EQUATION) > 60; MAGNESIUM 2.2 mg/dL (1.3-2.6); POTASSIUM 4.5 mMol/L (3.7-5.1); SODIUM 128 mMol/L (135-145); TOTAL BILIRUBIN 1.9 mg/dL (0.0-1.5); TOTAL PROTEIN 8.3 g/dL (6.0-8.4)
[2016-09-01 06:29] LABS: ALK PHOS 483 IU/L (33-138); ALT 470 IU/L (12-78); AST 621 IU/L (10-40)
--- NOTE | 2016-09-01 13:08 | NUR ---
Lisy Chi and I met with patient at bedside today. He was very sleepy today. Voice was soft and speech slightly mumbled at times. He verbalizes that he wants to go home so he can meet with his prune washer, finalize his will and get his finances in order. He states that he cannot make any decision anything else until he has the above matters taken care of. He feels that everything and everyone are coming at him at once and his main priorities are the above mentioned items. He states his mom will be able to take care of him at home. He states that he is able to live on one level at his home and have all of his needs met. He does agree to take his lactulose today when Lisy explains to him that this will help him feel less "foggy" and help clear his mind. I contacted Esperanza with [employer] and she states patient is Medicaid pending at this time. I share this with Lisy and she will share this with [facility] when she calls to make referral. Lisy will have [facility] contact patient's [id number] Vishal to go through the admission process. Will continue to follow.
--- NOTE | 2016-09-01 17:09 | NUR ---
Significant Event:VSS, pt refused a.m. dose of Lactulose, took noon dose. Dilaudid 2mg x 2 last dose 1141, rates pain 4-6/10 in stomach. Abdomen is distended, firm, with bowel sounds present. Pt reported moderate BM today. Ate fair, IVSL in R wrist. Pallitive care seen pt today. Follow up:Pt wishes to go home.
[2016-09-01 23:14] LABS: BLOOD URINE NEGATIVE /UL (NEGATIVE); COLOR URINE AMBER (YELLOW); GLUCOSE URINE NEGATIVE (NEGATIVE); KETONE URINE 5 mg/dL (NEGATIVE); LEUKOCYTES URINE 25 /UL (NEGATIVE); NITRITE URINE NEGATIVE (NEGATIVE); PROTEIN URINE 15 mg/dL (NEGATIVE); TURBIDITY URINE CLEAR (CLEAR); UROBILINOGEN URINE 4 mg/dL (NORMAL)
[2016-09-01 23:29] LABS: BACTERIA URINE NEGATIVE (NEGATIVE); EPITHELIAL URINE 0-2 #/HPF (NEGATIVE); MUCUS URINE 1+ (NEGATIVE); RBC URINE NEGATIVE #/HPF (NEGATIVE)
--- NOTE | 2016-09-02 04:13 | NUR ---
Significant Event: Patient is alert and oriented x 3. Forgetful. Drowsy at times, easily awoken. VSS on room air. Up with stand by assist and cane. Dressing to left side of abdomen is intact. BM x 1. Abdomen is slightly firm and distended. Bowel sounds active. Patient voided 125 mls plus one small void. Bladder scanned, 651 mls in. MD called, order to straight cath x 1, also started on Flomax. Patient straight cathed, 225 mls out. Dilaudid given for pain last at 2258. Right wrist IV, saline locked. Became NPO at midnight for abdominal ultrasound this am. Refused Lactulose. Follow up: Patient wants to go home.
[2016-09-02 05:17] LABS: INR - (THERAPEUTIC) 1.5 (0.9-1.1)
[2016-09-02 05:20] LABS: ALBUMIN 2.3 gm/dL (3.5-5.0); BLOOD UREA NITROGEN 35 mg/dL (6-24); CALCIUM 8.4 mg/dL (8.5-10.5); CHLORIDE 92 mMol/L (96-110); CO2 26 mMol/L (22-32); ESTIMATED GFR (MDRD EQUATION) > 60; SODIUM 128 mMol/L (135-145); TOTAL BILIRUBIN 1.7 mg/dL (0.0-1.5); TOTAL PROTEIN 7.9 g/dL (6.0-8.4)
[2016-09-02 05:22] LABS: ALK PHOS 416 IU/L (33-138); ALT 347 IU/L (12-78); ANION GAP 14.8 (10.0-19.0); AST 391 IU/L (10-40); POTASSIUM 4.8 mMol/L (3.7-5.1)
--- NOTE | 2016-09-02 08:41 | NUR ---
A - NUTRITION F/U. NA+ 128, GLU 123, BUN/MAILMASTER 35/1.0, ALB 2.3. ABD FIRM, SL DISTENDED. NPO FOR US OF ABD. INTAKE HAS VARIED BITES TO 75%. MAGIC CUP BID. EST NEEDS: 7234-6754 KCALS, PROTEIN HAS BEEN RESTRICTED TO 40 GMS. D - AT RISK W/ INADEQUATE ORAL INTAKE R/T DECRASED APPETITE AEB INTAKE RECORD. I - GOAL: 50% INTAKE BY DISMISSAL. M/E - CONT TO ENCOURAGE ORAL INTAKE. F/U IN 3-5 DAYS.
--- NOTE | 2016-09-02 15:52 | NUR ---
Phone call from Shirlene Gallo stating she met with the patient and he is only willing to stay until Tuesday, but at that time he will leave even if it is against medical advice. Per Shirlene we need to see if [facility] will be able to enroll patient on a prescription drug plan for Rifaximin. I will contact [facility] and see if this is a drug they have a plan for. Approximately 1420 I received a phone call from Charge Nurse Kathi, on [facility] stating the patient's brother in law Vishal is here and wants to meet with me. I was dealing with a situation on PEDS and did not get to the floor until 1450. Vishal has the POA papers for patient to sign and that need to be notorized. I contacted Liz cardona in the hospital and she came to notorize the Medical POA. We informed Vishal and Heron that we cannot notorize the Financial POA papers. Vishal contacted his litigation attorney in [place] and they were able to contact a practice here in [place] that sent a notary over to notorize the Financial POA papers. I will let medical providers and patient know if I was able to get him set up with [facility]. Will continue to follow while here.
--- NOTE | 2016-09-02 16:52 | NUR ---
Significant Event:Is A/O but forgetful at times.Has SL Rt.wrist.Has been up with standby assist.Is weak & groggy.Had oral dilaudid 2mg at around 0830.Has been taking his meds & lactolose ok but states he usually "throws up after taking it".He did have a small emesis after taking his second dose today.Has had 1 stool today.Voiding ok.States just wants to go home & get his things in order before he won't be able to.Abd is distended.Had ultrasound this morning.Is passing flatus. Follow up:
--- NOTE | 2016-09-03 03:43 | NUR ---
NEURO: A&O. Occassionally forgetful. CARDIO: Daily weight. SCDs. RESP: Mid 90's on RA. GI/: Lactulose QID. Mix with applejuice. SKIN: Abdomen distended. IV: SL right wrist. ACTIVITY: SBA. PAIN: Dilaudid Q4H PRN. PLAN: Wants to get home so he can get his finances and affairs in order while he is still able to.
[2016-09-03 05:46] LABS: BASOPHIL # 0.1 K/uL (0.0-0.2); BASOPHIL % 0.4 %; EOSINOPHIL # 0.1 K/uL (0.0-0.5); EOSINOPHIL % 0.5 %; HEMATOCRIT 35.3 % (37.0-53.0); HEMOGLOBIN 12.2 g/dL (11.0-16.0); IMMATURE GRANULOCYTE # 0.3 K/uL (0.0-0.3); LYMPHOCYTE # 2.6 K/uL (0.8-4.0); LYMPHOCYTE % 19.4 %; MCH 33.3 pg (27.0-34.0); MCHC 34.6 gm/dL (32.0-36.5); MCV 96.4 fl (83.0-98.0); MONOCYTE # 1.4 K/uL (0.0-1.0); MONOCYTE % 9.9 %; MPV 10.2 fl (9.4-12.4); NEUTROPHIL # (ANC) 9.2 K/uL (1.4-9.0); NEUTROPHIL % 67.8 %; NRBC % 0 /100WBC (0-0.00); PLATELET COUNT 270 K/uL (150-450); RBC 3.66 M/uL (3.50-5.50); RDW-CV 17.1 % (11.9-14.6); WBC 13.6 K/uL (4.0-11.0)
--- NOTE | 2016-09-03 15:37 | NUR ---
Met with Shirlene Abernathy and she states patient could go home today if he really wants to. Shirlene spoke to patient and he states that he is prepared to stay until Tuesday and that is what he wants to do at this time. He states that he and Vishal have appointments made in [place] and [place] on Tuesday so he does not want to have to reschedule all of those. Per Shirlene we are still tending to his medical needs so the plan will be to keep patient until Tuesday.
--- NOTE | 2016-09-03 17:30 | NUR ---
Is A/O.Seems more clear headed today.No N/V.Taking lactalose in apple mason.Had dilaudid 2mg po x2,last one at 1330.Has SL.Had 3 stools.Urine dark in color.Has been amb with standby assist.Is to go home Tuesday.
--- NOTE | 2016-09-04 04:39 | NUR ---
NEURO: A&O x 3. CARDIO: SCDs. Daily weight. RESP: Mid 90's on RA. GI/: No nausea. Please mix lactulose with apple juice or it makes patient nauseaus. 1 BM this shift. SKIN: Abdomen distended. IV: SL right wrist. ACTIVITY: Up ad leonila. PAIN: Dilaudid Q4H PRN. Last given at 2021. PLAN: Home Tuesday.
--- NOTE | 2016-09-04 16:03 | NUR ---
A&O-CONFUSED. VSS. SBA. C/O ABD PAIN. ACITIES. AFEBRILE. RA. LAUCULOUSE. BM X2 TODAY. VD X3. TAP SITE TO RL ABD. R WRIST SL. DAILY WT. NEW PANC CA DX W/METS REF TX. JOSUE IS HOME TUESDAY.
--- NOTE | 2016-09-05 05:11 | NUR ---
Significant Event: Patient alert and oriented X4. Up SBA in room. History of alcohol and smoking. Hep C+. Daily weight. Acites noted. Old tap site to abdomen. Lactulose with apple juice. Vitals stable. Room air. New diagnosed pancreatic CA, refusing treatments. Plan to go home tuesday. PO mayte harrington bed time. Follow up: Monitor pain
--- NOTE | 2016-09-05 17:17 | NUR ---
Significant Event: Patient up to bathroom and then back to bed. Dilaudid given times one today with a.m. meds. Relief noted from pain medication. Patient has been repositioning himself in bed. Lactulose given as ordered. Patient confused this a.m. about what day it is but has reoriented better by the time I gave him his a.m. pills. Slight nausea this a.m. but has been better. Follow up: Continue to monitor.
--- NOTE | 2016-09-06 04:21 | NUR ---
Significant Event: Patient alert and oriented X4. Forgetful at times. Daily weight, but refusing until moring meds. PO diluadid given at 0001. Abdomen distended. Lactulose scheduled. Takes in apple juice. Old tap site noted to abdomen. Vitals stable and on room air. Saline lock to R) wrist. Patient planning to go home today, and wants to be out of here by 1200, or states he will leave when his ride gets here. Follow up: Monitor stools
[2016-09-06 04:33] LABS: BASOPHIL % 0.2 %; EOSINOPHIL # 0.1 K/uL (0.0-0.5); EOSINOPHIL % 0.4 %; HEMATOCRIT 35.4 % (37.0-53.0); HEMOGLOBIN 12.2 g/dL (11.0-16.0); IMMATURE GRANULOCYTE # 0.2 K/uL (0.0-0.3); IMMATURE GRANULOCYTE % 1.4 %; LYMPHOCYTE # 2.6 K/uL (0.8-4.0); LYMPHOCYTE % 16.9 %; MCH 33.3 pg (27.0-34.0); MCHC 34.5 gm/dL (32.0-36.5); MCV 96.7 fl (83.0-98.0); MONOCYTE # 1.1 K/uL (0.0-1.0); MPV 9.7 fl (9.4-12.4); NEUTROPHIL # (ANC) 11.2 K/uL (1.4-9.0); NEUTROPHIL % 74.1 %; NRBC % 0 /100WBC (0-0.00); PLATELET COUNT 301 K/uL (150-450); RBC 3.66 M/uL (3.50-5.50); RDW-CV 16.3 % (11.9-14.6); WBC 15.2 K/uL (4.0-11.0)
[2016-09-06 04:49] LABS: ALBUMIN 2.3 gm/dL (3.5-5.0); ALK PHOS 397 IU/L (33-138); ALT 155 IU/L (12-78); ANION GAP 16.4 (10.0-19.0); AST 143 IU/L (10-40); BLOOD UREA NITROGEN 20 mg/dL (6-24); CALCIUM 8.2 mg/dL (8.5-10.5); CHLORIDE 90 mMol/L (96-110); CO2 25 mMol/L (22-32); CREATININE 0.8 mg/dL (0.6-1.3); ESTIMATED GFR (MDRD EQUATION) > 60; MAGNESIUM 1.9 mg/dL (1.3-2.6); POTASSIUM 4.4 mMol/L (3.7-5.1); SODIUM 127 mMol/L (135-145); TOTAL BILIRUBIN 1.6 mg/dL (0.0-1.5); TOTAL PROTEIN 7.8 g/dL (6.0-8.4)
[2016-09-06] MEDS ORDERED: PROTONIX40 MG PO (12:04)
[2016-09-06] MEDS ORDERED: FLOMAX0.4 MG PO (12:05)
[2016-09-06] MEDS ORDERED: ENULOSE UD L30 ML/EA PO (12:06)
[2016-09-06] MEDS ORDERED: DILAUDID 2MG(HYD2 MG PO (12:07)
--- NOTE | 2016-09-06 14:55 | NUR ---
A - NUT F/U. FORGETFUL @ TIMES LABS: NA 127, GLU 122, ALB 2.3, TOT BILI 1.6, ALK PHOS 397, AST 143,WBC 15.2, ALT 155 MEDS: LACTULOSE, PROTONIX, LASIX, ALDACTONE, NAUSEA DIET: REG. INTAKE: 0-50% MAGIC CUP @ L&D NEEDS: [id number] KCAL, 40 G PRO (PER MD) D - INADEQUATE NUTRIENT INTAKE R/T DECREASED APPETITE AEB INTAKE RECORD. I - GOAL FOR INCREASED ORAL INTAKE. WILL ADD ENSURE CLEAR @ B TO INC NUTRIENT INTAKE. M/E - WILL MONITOR INTAKE F/U IN 3-4 DAYS.
--- NOTE | 2016-09-06 15:56 | NUR ---
Met with Heorn prior to him discharging to home. He states that he has everything he needs. I encouraged him to follow up with Medicaid and SSI on the applications for Disability and Medicaid. If he gets Medicaid he may want to talk to his local doctor about home health care if he is not admitted to [facility]. He will consider this. No other discharge needs. Wished him well.
--- NOTE | 2016-09-09 09:26 | NUR ---
Post hospitalization follow up call made to patient. Patient is currently on Hospice. Reports he if feeling much better now that he is home. Has no questins concerning his follow up appointments or medications. Reports that his hospital stay went well.
== END 2016-09-06 16:10 | disposition disaster alternative care site (69) | DRG 432 ==
LOC: GMSU 14:20 → EDBD 14:20 → GMSU 14:20
PROVIDERS: Internal Medicine; Nurse Practitioner Family; Physician Assistant; ADMIT Family Medicine
PROC: 06L34CZ Occlusion of Esophageal Vein with Extraluminal Device, Percutaneous Endoscopic Approach (ICD-10-PCS; principal; 2016-08-24)
PROC: 0W9G3ZZ Drainage of Peritoneal Cavity, Percutaneous Approach (ICD-10-PCS; 2016-08-24)
DX: K70.31 Alcoholic cirrhosis of liver with ascites (principal); K72.00 Acute and subacute hepatic failure without coma; J90 Pleural effusion, not elsewhere classified; I85.10 Secondary esophageal varices without bleeding; C22.8 Malignant neoplasm of liver, primary, unspecified as to type; E44.0 Moderate protein-calorie malnutrition; D62 Acute posthemorrhagic anemia; E87.1 Hypo-osmolality and hyponatremia; K92.1 Melena; F10.21 Alcohol dependence, in remission; B19.20 Unspecified viral hepatitis C without hepatic coma; Z87.891 Personal history of nicotine dependence; T81.89XA Other complications of procedures, not elsewhere classified, initial encounter; Y84.4 Aspiration of fluid as the cause of abnormal reaction of the patient, or of later complication, without mention of misadventure at the time of the procedure; Z66 Do not resuscitate
CPT/HCPCS: C9113; J1940; J2270; J2405; J7030; J7050; P9047